=== PATIENT | female | born 1975 | race Caucasian/White ===

== ENCOUNTER 2025-02-20 11:43 | Outpatient (AMB) | payer BC, SELFPAY ==
--- NOTE | 2025-02-20 12:10 | A.OFFPC_ITS ---
Vital Signs 02/20/25 12:20 Height 5 ft 6 in Weight 294 lb 2 oz BMI 47.5 BP 158/102 H Blood Pressure Location Rt brachial Pulse 92 Pulse Source Pulse Oximeter Temp 98.6 F Temp Source Temporal Artery Scan Pulse Oximetry (%) 97 Oxygen Delivery Method Room Air Intake Visit Reasons: Obesity Intake Note: Medina presents in the office today to establish care and to discuss obesity. Allergies environmental allergies Allergy (Verified 02/20/25 12:14) Headache Tobacco use date assessed: 02/20/25 Dental Screening Dental Screen Date: 02/20/25 Did you have a dental visit in the last 12 months?: Yes Did you have a dental problem in the last 6 months where you did not have access to dental care?: Yes Was dental information given to patient?: Patient has dentist HPI HPI Comments History of Present Illness Details This is a 49-year-old female who presents to establish care. She scheduled the appointment because she would like to discuss obesity. She has been overweight for the majority of her life. In 2018 she lost a signi ficant amount of weight with lifestyle modifications , but she has gained it back. Her BMI is 47.5. She is 294 lb and 2 oz. Patient feels that perimenopause has significantly exacerbated her weight and made it more difficult to lose weight. She is exercising on a treadmill again. She is trying to eat healthier. She only drinks alcohol if she is out socially. She feels very motivated, but she is frustrated by her weight and how difficult and uncomfortable it is to exercise being this overweight. She was on Zepbound before, but she did not have a primary care provider so she paid out of pocket. She had very minimal side effects like constipation which was alleviated by taking an [id number]-[id number] magnesium supplement. Her blood pressure is elevated today. Patient says this is definitely due to anxiety at the appointment. She says her blood pressure always goes up at appointments, but she has the ability to check it at work, and it is never this high. She denies chest pain, shortness of breath, headache, blurry vision, dizziness. She is a nonsmoker. She has no history of cardiovascular disease. She has a family history of hypertension and diabetes. Mammogram is scheduled in April. She is overdue for a physical. ROS: Constitutional: No unexplained weight loss, fever, chills or night sweats. Eyes: No vision changes, blurry vision Respiratory: No shortness of breath, cough or sputum production. Cardiovascular: No chest pain, chest pressure or chest discomfort. No palpitations or pedal edema. Neurologic: No headache, dizziness, syncope Endocrine: No cold or heat intolerance. No polyuria or polydipsia. Psychiatric: No depression or anxiety. No SI/HI. Physical exam: Constitutional: Alert, in no distress. Neck: Supple, Full range of motion. No lymphadenopathy. No palpable thyroid masses. Respiratory: Clear to auscultation. Cardiovascular: S1 S2 regular. No murmurs. Neurologic: No focal neurological deficits. Extremities: Warm and well perfused. No clubbing, cyanosis or edema. Psychiatric: Normal mood and affect [facility] Medical History (Updated 02/20/25 @ 12:54 by DREW Malone) Elevated blood-pressure reading without diagnosis of hypertension Screening for cardiovascular condition Obesity Family History (Updated 02/20/25 @ 12:19 by Regina Manrique MA) Mother Hypertension Hyperlipemia Diabetes Maternal Grandmother Cardiovascular disease Father Esophageal cancer Paternal Grandfather Lung cancer Social History (Updated 02/20/25 @ 12:20 by Regina Manrique MA) Housing: House Alcohol intake: current Patient Tobacco Use Status: Former Tobacco user Cigarette Packs Per Day: 1 Cigarettes Per Day: 10 Years Smoked: 10 e-Cigarette/Vaping Use: Never Used Second Hand Smoke Exposure: No service: No Current occupational status: employed Current occupation: Dental Management Current occupational exposures/hazards: No Cognitive needs: No Hearing needs: No Vision needs: No Questionnaire PHQ-9 Over the last 2 weeks, how often have you been bothered by any of the following problems? 1. Little interest or pleasure in doing things: not at all 2. Feeling down, depressed, or hopeless: not at all 3. Trouble falling or staying asleep, or sleeping too much: not at all 4. Feeling tired or having little energy: several days 5. Poor appetite or overeating: nearly every day 6. Feeling bad about yourself - or that you are a failure or have let yourself or your family down: not at all 7. Trouble concentrating on things, such as reading the newspaper or watching television: not at all 8. Moving or speaking so slowly that other people could have noticed. Or the opposite - being so fidgety or restless that you have been moving around a lot more than usual: not at all 9. Thoughts that you would be better off or of hurting yourself in some way: not at all Total score: 4 Depression Screening Interpretation: Negative Depression Screening Done: Yes 11941 - PHQ-9 Billing: Yes Source: Developed by Drs. Moshe Mulligan, Soledad Almeida, Bean Pretty and colleagues, with an educational maryam from [employer]. Thrive Questionnaire Date Thrive assessed: 02/20/25 I am a: Patient What is your living situation today?: I have a steady place to live Within the past 12 months, did the food you bought not last and you didn't have the money to get more?: Never true Within the past 12 months, did you worry whether your food would run out before you got money to buy more?: Never true Do you have trouble paying for medicines?: No Do you have trouble getting transportation to medical appointments?: No Do you have trouble paying your heating and electricity bill?: No Do you have trouble taking care of your child, family member or friend?: No Do you have trouble with day-to-day activities such as bathing, preparing meals, shopping, managing finances, etc.?: No Are you currently unemployed and looking for a job?: No Are you interested in more education?: No Please select the resources that you would like help with: None Currently or been in a relationship where the following occur: No concerns reported THRIVE Score: 0 AUDIT C Alcohol Use Questionnaire (AUDIT-C) 1. How often do you have a drink containing alcohol?: 2-4 times a month 2. How many drinks containing alcohol do you have on a typical day when you are drinking?: 1 or 2 3. How often do you have six or more drinks on one occasion?: Never Total Score: 2 Score Reviewed/Action Taken: No NIKO-7 AMB Questionnaire NIKO-7 Date NIKO - 7 assessed: 02/20/25 Feeling nervous, anxious, or on edge: 0 = Not at all Not being able to stop or control worryin = Several days Worrying too much about different things: 1 = Several days Trouble relaxin = Not at all Being so restless that it is hard to sit still: 0 = Not at all Becoming easily annoyed or irritable: 0 = Not at all Feeling afraid as if something awful might happen: 0 = Not at all Total NIKO-7 score (0-4 normal; 5-9 mild; 10-14 moderate; 15-21 severe): 2 Source: Developed by Drs. Moshe Mulligan, Soledad Almeida, Bean Pretty and colleagues, with an educational maryam from [employer]. NIKO-7 Assessment Billing NIKO-7 Assessment Tool: NIKO-7 Assessment 32696 Physical exam (Primary Care) Vital Signs: Last Vital Signs Temp 98.6 F 02/20/25 12:20 Pulse 92 02/20/25 12:20 BP 158/102 H 02/20/25 12:20 Pulse Ox 97 02/20/25 12:20 Oxygen Delivery Method Room Air 02/20/25 12:20 BMI result Body Mass Index 47.5 Tobacco/Smoking Status: Tobacco use Status Tobacco use date assessed 02/20/25 02/20/25 12:25 Patient Tobacco Use Status Former Tobacco user 02/20/25 12:25 e-Cigarette/Vaping Use Never Used 02/20/25 12:25 PHQ-9: PHQ-9 Score PHQ-9: Total score 4 02/20/25 12:40 Depression Screening Interpretation: Negative Thrive Assessment: Date of Thrive Assessment Date Thrive assessed 02/20/25 02/20/25 12:25 Currently or been in a relationship where the following occur: No concerns reported Coding Level of Care Code New Pt Level 4 (90045) Complex EM visit Add On G2211 Diagnoses Obesity E66.9 Screening for cardiovascular condition Z13.6 Elevated blood-pressure reading without diagnosis of hypertension R03.0 Additional Codes NIKO-7 Assessment Billing - NIKO-7 Assessment Tool: NIKO-7 Assessment 42558 ([id number]) PHQ-9 - 40882 - PHQ-9 Billing: Yes ([id number]) Assessment & Plan Assessment & Plan (1) Obesity: Code(s): E66.9 - Obesity, unspecified Category: Medical Plan: We discussed decreasing portion sizes, low sugar, low-carbohydrate diet, avoidan ce of alcohol and getting regular exercise. She denies contraindications to GLP 1. Submitted Zepbound 2.5 mg weekly. Reviewed side effects and titration schedule. Refer to dietitian. (2) Screening for cardiovascular condition: Code(s): Z13.6 - Encounter for screening for cardiovascular disorders Category: Medical (3) Elevated blood-pressure reading without diagnosis of hypertension: Code(s): R03.0 - Elevated blood-pressure reading, without diagnosis of hypertension Category: Medical Plan: Patient states that blood pressure is high at office visits due to anxiety. She does not have symptoms of high blood pressure. I will give her a prescription for a blood pressure cuff. She will check this and bring a log with her to the next appointment in 6 weeks. She is working on weight loss and lifestyle modification as well. Recommended low-sodium diet and avoidance of caffeine. Check labs including urine for microalbumin and kidney function. Check TSH. Plan Follow up in 6 weeks for an annual physical/blood pressure check/med check. Orders: Orders TSH reflex Free T4 Today E66.9 - Obesity, unspecified, Z13.6 - Encounter for screening for cardiovascular disorders Comprehensive Met. Panel Today E66.9 - Obesity, unspecified, Z13.6 - Encounter for screening for cardiovascular disorders Microalbumin, Random (w Creat) Today R03.0 - Elevated blood-pressure reading, without diagnosis of hypertension Lipid Panel Today E66.9 - Obesity, unspecified, Z13.6 - Encounter for screening for cardiovascular disorders Complete Blood Count no Diff Today E66.9 - Obesity, unspecified, Z13.6 - Encounter for screening for cardiovascular disorders Vitamin D 25-OH (D2 and D3) Today E66.9 - Obesity, unspecified, Z13.6 - Encounter for screening for cardiovascular disorders Referrals Special Skills Officer Nutrition Referral E66.9 - Obesity, unspecified Medications: New tirzepatide (weight loss) (Zepbound) for 4 weeks 2.5 mg (0.5 mL) subcut QWEEK 2 mL 0RF blood pressure monitor As directed 1 ea 0RF R03.0 - Elevated blood-pressure reading, without diagnosis of hypertension
[2025-02-20 12:20] VITALS: BP 158/102; PULSE 92; TEMP 37; O2SAT 97; BMI 47.5
== END 2025-02-20 13:00 | disposition home or self-care (01) ==
LOC: HO.HMCFM 11:44
PROVIDERS: PCP Physician Assistant Medical; Visit Provider Physician Assistant Medical
DX: R03.0 Elevated blood-pressure reading, without diagnosis of hypertension (principal); E66.9 Obesity, unspecified; Z68.42 Body mass index [BMI] 45.0-49.9, adult; Z13.6 Encounter for screening for cardiovascular disorders

== ENCOUNTER → 2025-02-20 11:43 | Outpatient (BNVA) | payer BC, SELFPAY | PROVIDERS: PCP Physician Assistant Medical; Visit Provider Physician Assistant Medical | DX: Z76.89 Persons encountering health services in other specified circumstances (principal); E66.9 Obesity, unspecified; Z68.42 Body mass index [BMI] 45.0-49.9, adult; R03.0 Elevated blood-pressure reading, without diagnosis of hypertension; Z13.30 Encounter for screening examination for mental health and behavioral disorders, unspecified; Z13.31 Encounter for screening for depression; Z13.6 Encounter for screening for cardiovascular disorders | CPT/HCPCS: 96127 ==

== ENCOUNTER 2025-06-15 08:22 | Outpatient (AMB) | payer BC, SELFPAY ==
--- NOTE | 2025-06-15 08:34 | A.OFFVIS_ITS ---
VS Expanded 06/15/25 09:19 Height 5 ft 6 in Weight 274 lb 0.553 oz BMI 44.2 Intake Visit Reasons: Obesity, unspecified Allergies environmental allergies Allergy (Verified 02/20/25 12:14) Headache Nutrition Presentation Details: Pt presents for MNT for obesity Pt is on zepbound Working on meal planning and meal prep Food frequency fruits: 0-1/d fish 3 x/wk dairy: yogurt mostly 1-2/d vegetables: daily 2-3/d fluids: 16 oz/d etoh occ smoking denies fried foods 1/wk physical activity : ADL HUG-Nlzcuhg-Ey.Jeor Equation Height: 5 ft 6 in Weight: 274 lb Resting Metabolic Rate: 1877.43 Calculated Activity Level: Sedentary Calories Needed to Maintain Weight: 2252.92 Diagnosis Nutrition problem #1: overweight/obesity As related to (etiology) #1: diagnosis As evidenced by (sign/symptom) #1: high BMI (44.2 on 06/15) [facility] Medical History (Updated 02/20/25 @ 12:54 by DREW Malone) Elevated blood-pressure reading without diagnosis of hypertension Screening for cardiovascular condition Obesity Family History (Updated 02/20/25 @ 12:19 by Regina Manrique MA) Mother Hypertension Hyperlipemia Diabetes Maternal Grandmother Cardiovascular disease Father Esophageal cancer Paternal Grandfather Lung cancer Social History (Updated 02/20/25 @ 12:20 by Regina Manrique MA) Housing: House Alcohol intake: current Patient Tobacco Use Status: Former Tobacco user Cigarette Packs Per Day: 1 Cigarettes Per Day: 10 Years Smoked: 10 e-Cigarette/Vaping Use: Never Used Second Hand Smoke Exposure: No service: No Current occupational status: employed Current occupation: Dental Management Current occupational exposures/hazards: No Cognitive needs: No Hearing needs: No Vision needs: No Assessment & Plan Assessment & Plan (1) Obesity: Code(s): E66.9 - Obesity, unspecified Category: Medical Plan: current wt:124 kg ( 06/15 ) est kcal needs as per MSJ: 2250 est protein needs as per 1 g/kg BW: 120 est fluid needs as per 30 ml/kg BW: 3700 Recommended fiber > 12 g /day and gradually increase up to 25-28 g /day or as tolerated Nutrition topics discussed : Reviewed (R), Pt verbalized understanding (V) , not applicable (N/A) R, V, : Healthy Plate Method Concept: R, : Carbohydrates: food sources of carbohydrates, relationship of carbohydrates to blood glucose, fatty liver GI health. Recommended total amount of carbohydrates per meals and snack. Differences between simple carbohydrates and complex carbohydrates R, : Lean protein foods including vegan , vegetarian sources of protein. Benefits of protein (including but not limited to healing, nutritional value , benefits in weight loss, glucose control R, : Fats : Source of fats, benefits of fats. Difference between saturated and unsaturated fats. Saturated fats and its contribution to inflammation R, : Fiber: food sources and role of fiber in the diet (including but not limited to its role as a prebiotic, benefits in constipation, role in IBS , role in glucose control and cholesterol level) R, : Hydration: role of hydration and prevention of dehydration or over hydration. Foods and water content. R, V, N/A: Vitamins and Minerals in foods and supplements R, V, N/A: Interpreting food labels, including serving size, macronutrients, vitamins, minerals, allergens, ingredient list , % daily value Patient Instructions: Increase on fluid intake , have 8 oz of water before before and with snacks Work on reducng portions, total carb per meal < 60 g for now choosing fiber rich foods (complex carbs) Coding Level of Care Code Nutr Indiv Intake (82861) Diagnoses Obesity E66.9 Time Spent (min) 30
[2025-06-15 09:19] VITALS: BMI 44.2
[2025-06-15 09:26] VITALS: BMI 44.2
== END 2025-06-15 09:17 | disposition home or self-care (01) ==
LOC: HO.ENCR 08:23
PROVIDERS: PCP Physician Assistant Medical; Visit Provider Dietitian, Registered
DX: E66.9 Obesity, unspecified (principal)

== ENCOUNTER → 2025-06-15 08:22 | Outpatient (BNVA) | payer BC, SELFPAY | PROVIDERS: PCP Physician Assistant Medical; Visit Provider Dietitian, Registered | DX: E66.9 Obesity, unspecified (principal) | CPT/HCPCS: 97802 ==

== ENCOUNTER 2025-08-30 09:18 | Outpatient (REF) | payer BC, SELFPAY ==
[2025-08-30 11:30] LABS: Hematocrit 43.1 % (37.0-47.0); Hemoglobin 14.7 g/dl (12.0-16.0); Mean Corpuscular HGB Conc 34.1 g/dl (31.0-35.0); Mean Corpuscular Hemoglobin 31.1 pg (27.0-33.0); Mean Corpuscular Volume 91.3 fL (80.0-98.0); NRBC Abs Auto 0.000 X10*3/uL (0.0-0.012); NRBC Pct Auto 0.0 /100WBC (0.0-0.2); Platelet Count 274 X10*3/uL (160-400); Red Blood Count 4.72 X10*6/uL (4.20-5.50); White Blood Count 6.1 X10*3/uL (4.8-10.8)
[2025-08-30 12:20] LABS: Alanine Aminotransferase 14 U/L (0-31); Albumin Level 4.4 g/dL (3.5-5.0); Alkaline Phosphatase 60 U/L (39-117); Anion Gap 9 (12-20); Aspartate Amino Transferase 21 U/L (5-31); Blood Urea Nitrogen 11 mg/dL (9-16); Calcium 8.9 mg/dL (8.4-10.2); Carbon Dioxide 25 mmol/L (22-29); Chloride 109 mmol/L (96-108); Cholesterol 194 mg/dL (<200); Estimated Glomerular Filt Rate > 60; HDL Cholesterol 58 mg/dL (>40); Potassium 4.4 mmol/L (3.3-5.1); Sodium 139 mmol/L (135-145); Total Protein 7.3 g/dL (6.5-8.0); Triglycerides 76 mg/dL (<150)
[2025-08-30 16:38] LABS: Microalbum/Creatinine Ratio Ur 8.7 ug/mg cr (<30)
== END 2025-08-30 09:19 ==
LOC: HO.WFDLDS 09:18
PROVIDERS: Visit Provider Physician Assistant Medical
DX: Z13.6 Encounter for screening for cardiovascular disorders (principal); Z13.29 Encounter for screening for other suspected endocrine disorder; Z13.21 Encounter for screening for nutritional disorder; R03.0 Elevated blood-pressure reading, without diagnosis of hypertension; E66.9 Obesity, unspecified
CPT/HCPCS: 36415; 80053; 80061; 82043; 82306; 82570; 84443; 85027

== ENCOUNTER 2025-09-07 16:01 | Outpatient (AMB) | payer BC, SELFPAY ==
--- NOTE | 2025-09-07 16:06 | MHC.PC.OV ---
Vital Signs 09/07/25 16:10 Height 5 ft 6 in Weight 259 lb 4 oz BMI 41.8 BP 160/100 H Blood Pressure Location Rt brachial Position Sitting Respiration 16 Pulse 83 Pulse Source Pulse Oximeter Temp 98.1 F Temp Source Temporal Artery Scan Pulse Oximetry (%) 98 Oxygen Delivery Method Room Air Intake Visit Reasons: annual physical exam Intake Note: Medina presents in the office today for her annual exam. 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 Is last menstrual period known: Yes Last menstrual period: 07/05/25 Post menopausal: No Patient : No Allergies environmental allergies Allergy (Verified 09/07/25 16:10) Headache Medication List - Last Reconciled 09/08/25 by DREW Malone blood pressure monitor As directed cholecalciferol (vitamin D3) 50 mcg PO DAILY loratadine (Claritin) 10 mg PO DAILY tirzepatide (weight loss) (Zepbound) 15 mg (0.5 mL) subcut QWEEK Tobacco use date assessed: 09/07/25 Dental Screening Dental Screen Date: 09/07/25 Did you have a dental visit in the last 12 months?: Yes Did you have a dental problem in the last 6 months where you did not have access to dental care?: No Was dental information given to patient?: Patient has dentist HPI HPI Comments History of Present Illness Details This is a 50-year-old female who presents for a physical exam. Obesity-taking Zepbound 15 mg weekly. She has occasional nausea and constipation. No significant side effects. Initial weight 02/20/2025 294 lb 2 oz. Today she weighs 259 lb 4 oz. She is walking for exercise. She is following a low carb diet and controlling portion sizes. Elevated blood pressure-patient has a history of office hypertension. She has a blood pressure cuff, but she has not been checking her blood pressure at home consistently. She says it is usually in the mid 130s. Does not know diastolic numbers at home.She denies chest pain, shortness of breath, headache, blurry vision, dizziness. She is a nonsmoker. She has no history of cardiovascular disease. She has a family history of hypertension and diabetes in her mother. No microalbuminuria. Renal function is normal. Patient reports that she had a normal mammogram at [facility] in March. 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 She had her eye exam in April. I recommended the annual influenza vaccine, tetanus vaccine, shingles vaccine and pneumonia vaccine. We reviewed her recent labs. She started the vitamin-D supplement. Declines colonoscopy. Cologuard ordered. ROS: Constitutional: No unexplained weight loss, fever, chills, fatigue or night sweats. Eyes: No vision changes, blurry vision, double vision, eye pain, eye redness, eye discharge. ENT: No hearing loss, sneezing, congestion, runny nose or sore throat. Respiratory: No shortness of breath, cough or sputum production. Cardiovascular: No chest pain, chest pressure or chest discomfort. No palpitations or pedal edema. Gastrointestinal: No anorexia, nausea, vomiting or diarrhea. No abdominal pain or blood in stool. Genitourinary: No dysuria, hematuria, urinary frequency. Neurologic: No headache, dizziness, syncope, unilateral weakness, ataxia, numbness or tingling in the extremities. Musculoskeletal: No muscle pain, back pain, joint pain or swelling. Hematologic/Lymphatics: No bleeding or bruising. No painful lymph nodes. Skin: No rash Endocrine: No cold or heat intolerance. No polyuria or polydipsia. Psychiatric: No depression or anxiety. No SI/HI. Physical exam: Constitutional: Alert, in no distress. Head: Normocephalic. Eyes: Pupils are equal, round and reactive to light. Extraocular muscles intact. Ear, Nose and Throat: Canals clear. TMs normal. Normal nasal mucosa. No nasal discharge. No oral lesions. Neck: Supple, Full range of motion. No lymphadenopathy. No palpable thyroid masses. Respiratory: Clear to auscultation. Cardiovascular: S1 S2 regular. No murmurs. No carotid bruits. Gastrointestinal: Abdomen soft, non-tender, non-distended. Normal bowel sounds. No palpable masses. Neurologic: No focal neurological deficits. Symmetric patellar reflexes. Moves all extremities spontaneously. Sensation intact bilaterally. Skin: No rashes Musculoskeletal: No gross deformities. Normal range of motion. Extremities: Warm and well perfused. No clubbing, cyanosis or edema. Intact peripheral pulses bilaterally Psychiatric: Normal mood and affect [facility] Medical History (Updated 09/08/25 @ 09:08 by DREW Malone) Low vitamin D level Routine physical examination Elevated blood-pressure reading without diagnosis of hypertension Screening for cardiovascular condition Obesity Family History Mother Hypertension Hyperlipemia Diabetes Maternal Grandmother Cardiovascular disease Father Esophageal cancer Paternal Grandfather Lung cancer Social History (Updated 09/07/25 @ 16:10 by Regina Manrique CMA) Housing: House Alcohol intake: current Patient Tobacco Use Status: Former Tobacco user Cigarette Packs Per Day: 1 Cigarettes Per Day: 10 Years Smoked: 10 e-Cigarette/Vaping Use: Never Used Second Hand Smoke Exposure: No service: No Current occupational status: employed Current occupation: Dental Management Current occupational exposures/hazards: No Cognitive needs: No Hearing needs: No Vision needs: No Female Reproductive History Menstrual Date of last menstrual period: 07/05/25 Questionnaire PHQ-9 Over the last 2 weeks, how often have you been bothered by any of the following problems? 1. Little interest or pleasure in doing things: not at all 2. Feeling down, depressed, or hopeless: not at all 3. Trouble falling or staying asleep, or sleeping too much: not at all 4. Feeling tired or having little energy: not at all 5. Poor appetite or overeating: not at all 6. Feeling bad about yourself - or that you are a failure or have let yourself or your family down: not at all 7. Trouble concentrating on things, such as reading the newspaper or watching television: not at all 8. Moving or speaking so slowly that other people could have noticed. Or the opposite - being so fidgety or restless that you have been moving around a lot more than usual: not at all 9. Thoughts that you would be better off or of hurting yourself in some way: not at all Total score: 0 Depression Screening Interpretation: Negative Depression Screening Done: Yes 73032 - PHQ-9 Billing: Yes Source: Developed by Drs. Moshe Mulligan, Soledad Almeida, Bean Pretty and colleagues, with an educational maryam from [employer]. Thrive Questionnaire Date Thrive assessed: 02/20/25 I am a: Patient What is your living situation today?: I have a steady place to live Within the past 12 months, did the food you bought not last and you didn't have the money to get more?: Never true Within the past 12 months, did you worry whether your food would run out before you got money to buy more?: Never true Do you have trouble paying for medicines?: No Do you have trouble getting transportation to medical appointments?: No Do you have trouble paying your heating and electricity bill?: No Do you have trouble taking care of your child, family member or friend?: No Do you have trouble with day-to-day activities such as bathing, preparing meals, shopping, managing finances, etc.?: No Are you currently unemployed and looking for a job?: No Are you interested in more education?: No Currently or been in a relationship where the following occur: No concerns reported THRIVE Score: 0 AUDIT C Alcohol Use Questionnaire (AUDIT-C) 1. How often do you have a drink containing alcohol?: Monthly or less 2. How many drinks containing alcohol do you have on a typical day when you are drinking?: 1 or 2 3. How often do you have six or more drinks on one occasion?: Never Total Score: 1 NIKO-7 AMB Questionnaire NIKO-7 Date NIKO - 7 assessed: 09/07/25 Feeling nervous, anxious, or on edge: 0 = Not at all Not being able to stop or control worryin = Not at all Worrying too much about different things: 0 = Not at all Trouble relaxin = Not at all Being so restless that it is hard to sit still: 0 = Not at all Becoming easily annoyed or irritable: 0 = Not at all Feeling afraid as if something awful might happen: 0 = Not at all Total NIKO-7 score (0-4 normal; 5-9 mild; 10-14 moderate; 15-21 severe): 0 Source: Developed by Drs. Moshe Mulligan, Soledad Almeida, Bean Pretty and colleagues, with an educational maryam from [employer]. NIKO-7 Assessment Billing NIKO-7 Assessment Tool: NIKO-7 Assessment 81627 Physical exam (Primary Care) Vital Signs: Last Vital Signs Temp 98.1 F 09/07/25 16:10 Pulse 83 09/07/25 16:10 Resp 16 09/07/25 16:10 BP 160/100 H 09/07/25 16:10 Pulse Ox 98 09/07/25 16:10 Oxygen Delivery Method Room Air 09/07/25 16:10 BMI result Body Mass Index 41.8 Tobacco/Smoking Status: Tobacco use Status Tobacco use date assessed 09/07/25 09/07/25 16:17 Patient Tobacco Use Status Former Tobacco user 09/07/25 16:10 e-Cigarette/Vaping Use Never Used 09/07/25 16:10 PHQ-9: PHQ-9 Score PHQ-9: Total score 0 09/07/25 16:21 Depression Screening Interpretation: Negative Thrive Assessment: Date of Thrive Assessment Date Thrive assessed 02/20/25 09/07/25 16:08 Currently or been in a relationship where the following occur: No concerns reported Coding Level of Care Code Est Pt Prev Care 40-64y(44555) Diagnoses Routine physical examination Z00.00 Obesity E66.9 Elevated blood-pressure reading without diagnosis of hypertension R03.0 Low vitamin D level R79.89 Additional Codes NIKO-7 Assessment Billing - NIKO-7 Assessment Tool: NIKO-7 Assessment 69051 ([id number]) PHQ-9 - 04011 - PHQ-9 Billing: Yes ([id number]) Assessment & Plan Assessment & Plan (1) Routine physical examination: Code(s): Z00.00 - Encounter for general adult medical examination without abnormal findings Category: Medical Plan: Patient is seen today for a routine physical. As part of this visit we reviewed the following issues, which are considered and essential part of preventative health in this age group: - Breast Cancer screening - Annual Body Service Team Member exam - Screening for colon cancer - Cholesterol screening - Osteoporosis prevention including calcium/vitamin D intake, weight bearing exercise & smoking cessation - Nutritional and exercise counseling - Counseling of injury prevention including fire prevention, smoke alarms and seat belt usage - Screening for depression - Education about skin cancer - Recommendations about immunizations - Recommendation of an eye exam - Screening for substance abuse (2) Obesity: Code(s): E66.9 - Obesity, unspecified Category: Medical Plan: She is doing well with weight loss on Zepbound. Continue current dose. Continue lifestyle modifications. (3) Elevated blood-pressure reading without diagnosis of hypertension: Code(s): R03.0 - Elevated blood-pressure reading, without diagnosis of hypertension Category: Medical Plan: Patient attributes this to office anxiety. She is going to monitor her blood pressure at work and at home over the next month and submit a log beer the patient portal for my review. If her home readings are elevated she is willing to start medication. Recommended low-sodium diet and continuing efforts at weight loss. Minimize caffeine. (4) Low vitamin D level: Code(s): R79.89 - Other specified abnormal findings of blood chemistry Category: Medical Plan: Continue vitamin-D supplement. Repeat blood test in 12 weeks. Plan Follow up in 3-4 months for vitamin-D results and medication review and elevated blood pressure. Orders: Referrals Cologuard Test Z12.11 - Encounter for screening for malignant neoplasm of colon Medications: Refilled tirzepatide (weight loss) (Zepbound) 15 mg (0.5 mL) subcut QWEEK 6 mL 1RF
[2025-09-07 16:10] VITALS: BP 160/100; PULSE 83; RESP 16; TEMP 36.7; O2SAT 98; BMI 41.8
== END 2025-09-07 16:57 | disposition home or self-care (01) ==
LOC: HO.HMCFM 16:02
PROVIDERS: PCP Physician Assistant Medical; Visit Provider Physician Assistant Medical
DX: Z00.00 Encounter for general adult medical examination without abnormal findings (principal); E66.9 Obesity, unspecified; R03.0 Elevated blood-pressure reading, without diagnosis of hypertension; R79.89 Other specified abnormal findings of blood chemistry; Z68.41 Body mass index [BMI] 40.0-44.9, adult

== ENCOUNTER → 2025-09-07 16:01 | Outpatient (BNVA) | payer BC, SELFPAY | PROVIDERS: PCP Physician Assistant Medical; Visit Provider Physician Assistant Medical | DX: Z00.00 Encounter for general adult medical examination without abnormal findings (principal); E66.9 Obesity, unspecified; Z68.41 Body mass index [BMI] 40.0-44.9, adult; R03.0 Elevated blood-pressure reading, without diagnosis of hypertension; R79.89 Other specified abnormal findings of blood chemistry; Z71.3 Dietary counseling and surveillance; Z87.891 Personal history of nicotine dependence | CPT/HCPCS: 96127 ==